=== PATIENT | female | born 1960 | race Caucasian/White ===

== ENCOUNTER 2019-08-16 | Emergency (ER) | payer SELFPAY ==
[2019-08-16] MEDS ORDERED: BACTROBAN TOP (13:32)
[2019-08-16] MEDS ORDERED: KEFLEX500 M1 PO (13:32)
[2019-08-16] MEDS ORDERED: NO HOME MED (13:57)
== END 2019-08-16 13:58 | disposition home or self-care (01) | DRG 563 ==
PROC: 0HQKXZZ Repair Right Lower Leg Skin, External Approach (ICD-10-PCS; principal; 2019-08-16)
DX: S42.295A Other nondisplaced fracture of upper end of left humerus, initial encounter for closed fracture (principal); S81.811A Laceration without foreign body, right lower leg, initial encounter; F17.210 Nicotine dependence, cigarettes, uncomplicated; W11.XXXA Fall on and from ladder, initial encounter; Y93.89 Activity, other specified; Y92.89 Other specified places as the place of occurrence of the external cause; Y99.0 Civilian activity done for income or pay

== ENCOUNTER 2019-08-18 | Emergency (ER) | payer SELFPAY ==
[~2019-08-18] MED LIST: BACTROBAN TOP; KEFLEX500 M1 PO; NO HOME MED
== END 2019-08-18 10:28 | disposition home or self-care (01) | DRG 950 ==
DX: S81.811D Laceration without foreign body, right lower leg, subsequent encounter (principal); S80.812D Abrasion, left lower leg, subsequent encounter; X58.XXXD Exposure to other specified factors, subsequent encounter; F17.210 Nicotine dependence, cigarettes, uncomplicated

== ENCOUNTER 2019-08-27 | Emergency (ER) | payer SELFPAY ==
[2019-08-27] MEDS ORDERED: KEFLEX500 M1 PO (12:39)
== END 2019-08-27 12:48 | disposition home or self-care (01) | DRG 950 ==
DX: S81.811D Laceration without foreign body, right lower leg, subsequent encounter (principal); X58.XXXD Exposure to other specified factors, subsequent encounter

== ENCOUNTER 2022-06-02 14:35 | Emergency (ER) | payer OTHER ==
[~2022-06-02] VITALS: Ht 167.6 cm; Wt 49.8 kg
[2022-06-02 14:46] VITALS: BP 187/102
[2022-06-02 15:00] VITALS: BP 176/92
[2022-06-02 15:30] VITALS: BP 170/91
[2022-06-02] MEDS ORDERED: KEFLEX500 MG PO (15:42)
[2022-06-02 15:43] VITALS: BP 170/91
== END 2022-06-02 15:56 | disposition home or self-care (01) | DRG 605 ==
LOC: ED 14:35
DX: S61.211A Laceration without foreign body of left index finger without damage to nail, initial encounter (principal); W26.0XXA Contact with knife, initial encounter

== ENCOUNTER 2022-06-10 16:40 | Emergency (ER) | payer SELFPAY ==
[~2022-06-10] VITALS: Ht 167.6 cm; Wt 48.0 kg
[~2022-06-10 16:40] MED LIST changes: +KEFLEX500 MG PO
[2022-06-10 17:20] VITALS: BP 150/96
== END 2022-06-10 17:33 | disposition home or self-care (01) | DRG 951 ==
LOC: ED 16:40
DX: Z48.02 Encounter for removal of sutures (principal)